=== PATIENT | male | born 1955 | race Asian ===

== ENCOUNTER 2016-04-20 10:27 | Outpatient (CLI) | payer OTHER ==
[2016-04-20] MEDS ORDERED: LISI20TA31 OR (10:41)
[2016-04-20] MEDS ORDERED: CLONIDINE0.2 MG/24 TD (10:41)
[2016-04-20] MEDS ORDERED: METFORMIN ER1000 MG PO (10:42)
[2016-04-20] MEDS ORDERED: CARV12.5 PO (10:43)
[2016-04-20] MEDS ORDERED: GABA300C2 PO (10:43)
[2016-04-20] MEDS ORDERED: TRAZ50TA36 PO (10:44)
[2016-04-20] MEDS ORDERED: VERA120T22 PO (10:44)
[2016-04-20] MEDS ORDERED: LOPID PO (10:48)
[2016-04-20] MEDS ORDERED: GLIP10TA55 PO (10:49)
[2016-04-20] MEDS ORDERED: ACID REDUCER150 MG PO (10:50)
[2016-04-20] MEDS ORDERED: HYDR5TAB9 PO (10:51)
== END 2016-04-20 10:30 | disposition short-term general hospital (02) ==
LOC: AMB 10:27
DX: R55 Syncope and collapse (principal); R41.82 Altered mental status, unspecified; I95.89 Other hypotension
CPT/HCPCS: A0425; A0427

== ENCOUNTER 2016-04-20 10:30 | Emergency (ER) | payer OTHER ==
[~2016-04-20] VITALS: Ht 182.9 cm; Wt 104.3 kg
[2016-04-20] MEDS ORDERED: LISI20TA31 OR (10:41)
[2016-04-20] MEDS ORDERED: CLONIDINE0.2 MG/24 TD (10:41)
[2016-04-20] MEDS ORDERED: METFORMIN ER1000 MG PO (10:42)
[2016-04-20] MEDS ORDERED: CARV12.5 PO (10:43)
[2016-04-20] MEDS ORDERED: GABA300C2 PO (10:43)
[2016-04-20] MEDS ORDERED: TRAZ50TA36 PO (10:44)
[2016-04-20] MEDS ORDERED: VERA120T22 PO (10:44)
[2016-04-20] MEDS ORDERED: LOPID PO (10:48)
[2016-04-20] MEDS ORDERED: GLIP10TA55 PO (10:49)
[2016-04-20] MEDS ORDERED: ACID REDUCER150 MG PO (10:50)
[2016-04-20] MEDS ORDERED: HYDR5TAB9 PO (10:51)
[2016-04-20 11:19] LABS: PLATELET COUNT 476 K/uL (142-355)
[2016-04-20 11:24] LABS: POTASSIUM 3.8 mmol/L (3.6-5.2); SODIUM 138 mmol/L (136-145)
[2016-04-20 12:45] VITALS: BP 126/78; TEMP 98.5
== END 2016-04-20 12:45 | disposition home or self-care (01) ==
LOC: ED 10:30
PROVIDERS: Specialist
DX: I95.89 Other hypotension (principal); E86.9 Volume depletion, unspecified
CPT/HCPCS: 80048; 82550; 82553; 84484; 85027; 96360; 99284

== ENCOUNTER 2017-01-26 15:30 | Emergency (ER) | payer OTHER ==
[~2017-01-26] VITALS: Ht 182.9 cm; Wt 105.2 kg
[~2017-01-26 15:30] MED LIST: ACID REDUCER150 MG PO; CARV12.5 PO; CLONIDINE0.2 MG/24 TD; GABA300C2 PO; GLIP10TA55 PO; HYDR5TAB9 PO; LISI20TA31 OR; LOPID PO; METFORMIN ER1000 MG PO; TRAZ50TA36 PO; VERA120T22 PO
[2017-01-26 16:41] LABS: PLATELET COUNT 275 K/uL (142-355)
[2017-01-26 16:47] LABS: POTASSIUM 3.7 mmol/L (3.6-5.2)
[2017-01-26 18:21] VITALS: BP 167/89; TEMP 98.3
== END 2017-01-26 18:22 | disposition home or self-care (01) ==
LOC: ED 15:30
PROVIDERS: Specialist
DX: L08.89 Other specified local infections of the skin and subcutaneous tissue (principal); S61.214A Laceration without foreign body of right ring finger without damage to nail, initial encounter; L03.113 Cellulitis of right upper limb; W18.39XA Other fall on same level, initial encounter; Y92.098 Other place in other non-institutional residence as the place of occurrence of the external cause
CPT/HCPCS: 80053; 85027; 96372; 99283

== ENCOUNTER 2017-11-08 09:40 | Emergency (ER) | payer OTHER ==
[~2017-11-08] VITALS: Ht 182.9 cm; Wt 100.2 kg
[2017-11-08 09:35] VITALS: TEMP 97
[2017-11-08 10:55] LABS: PLATELET COUNT 241 K/uL (142-355)
[2017-11-08] MEDS ORDERED: PRAVACHOL20 MG PO (10:55)
[2017-11-08] MEDS ORDERED: ASA LOW STR81 MG PO (10:57)
[2017-11-08] MEDS ORDERED: CYCL10TA35 PO (10:59)
[2017-11-08 11:00] LABS: POTASSIUM 3.8 mmol/L (3.6-5.2)
[2017-11-08] MEDS ORDERED: MONT10TA PO (11:00)
[2017-11-08] MEDS ORDERED: PROTONIX20 MG PO (11:02)
[2017-11-08] MEDS ORDERED: BUDE1AER3 INH (11:02)
[2017-11-08] MEDS ORDERED: GLUCOS1 PO (11:07)
[2017-11-08 13:00] VITALS: BP 130/82
== END 2017-11-08 13:14 | disposition home or self-care (01) ==
LOC: ED 09:40
PROVIDERS: Emergency Medicine
DX: E86.0 Dehydration (principal); E11.9 Type 2 diabetes mellitus without complications
CPT/HCPCS: 80053; 80307; 80320; 81000; 85027; 93005; 96360; 96361; 99284

== ENCOUNTER 2020-05-05 08:58 | Outpatient (CLI) | payer OTHER ==
[~2020-05-05] VITALS: Ht 182.9 cm; Wt 100.2 kg
[~2020-05-05 08:58] MED LIST changes: +ASA LOW STR81 MG PO; +BUDE1AER3 INH; +CYCL10TA35 PO; +GLUCOS1 PO; +MONT10TA PO; +PRAVACHOL20 MG PO; +PROTONIX20 MG PO
== END 2020-05-05 20:42 | disposition home or self-care (01) ==
LOC: NM 08:58 → RESP 09:00 → NM 09:30
PROVIDERS: ATTEND Specialist
DX: R07.89 Other chest pain (principal); I25.10 Atherosclerotic heart disease of native coronary artery without angina pectoris
CPT/HCPCS: A9500; J2785

== ENCOUNTER 2020-10-02 08:00 | Day surgery (SDC) | payer OTHER ==
[2020-10-02 09:38] LABS: PLATELET COUNT 228 K/uL (142-355)
[2020-10-02 09:57] LABS: POTASSIUM 3.2 mmol/L (3.6-5.2)
== END 2020-10-02 09:00 | disposition home or self-care (01) ==
LOC: OR 08:00
PROVIDERS: ATTEND Internal Medicine
DX: Z12.11 Encounter for screening for malignant neoplasm of colon (principal); I10 Essential (primary) hypertension
CPT/HCPCS: 80053; 85027; 87635; U0003

== ENCOUNTER 2021-01-21 06:53 | Day surgery (SDC) | payer OTHER ==
[2021-01-18 09:13] LABS: PLATELET COUNT 279 K/uL (142-355)
[2021-01-18 09:33] LABS: POTASSIUM 3.5 mmol/L (3.6-5.2)
[~2021-01-21] VITALS: Ht 30.5 cm; Wt 0.5 kg
== END 2021-01-21 10:17 | disposition home or self-care (01) ==
LOC: OR 06:53
PROVIDERS: ATTEND Internal Medicine
PROC: 0DJD8ZZ Inspection of Lower Intestinal Tract, Via Natural or Artificial Opening Endoscopic (ICD-10-PCS; principal; 2021-01-21)
DX: Z12.11 Encounter for screening for malignant neoplasm of colon (principal); Z20.822 Contact with and (suspected) exposure to COVID-19
CPT/HCPCS: 80053; 85027; 87635; J2704; U0003